=== PATIENT | female | born 1980 | race Caucasian/White ===

== ENCOUNTER 2022-09-13 10:07 | Emergency (ER) | payer BC ==
[~2022-09-13] VITALS: Ht 149.9 cm; Wt 45.4 kg
[2022-09-13 10:29] VITALS: BP_SYST 93; PULSE 124; RESP 24; TEMP 99.9; O2SAT 99
--- NOTE | 2022-09-13 10:50 | NUR ---
Patient BIB mother C/O cough & fevers since 09/09. has been seen in urgent care twice. Wa given two different antibiotics but is not feeling better. Was tested for COVID at urgent care Friday, was negative. Returned to urgent care yesterday and was given IV fluids. Fever today was stated to be 101 prior to coming to ED but took Tylenol. Also c/o swelling to bilat hands. No med hx. Sx Hx of breast augmentation. NKA. VSS.
--- NOTE | 2022-09-13 11:00 | NUR ---
DR BAUER AT BEDSIDE
--- NOTE | 2022-09-13 11:05 | NUR ---
Covid & flu swabs obtained & taken to lab.
--- NOTE | 2022-09-13 11:08 | NUR ---
PORTABLE XRAY AT THE BEDSIDE
--- NOTE | 2022-09-13 11:10 | NUR ---
Urine sample obtained and taken to lab. HCG negative.
[2022-09-13 11:24] LABS: BASOPHILS % (AUTO) 0.2 % (0.0-2.0); EOSINOPHILS % (AUTO) 0.3 % (0.0-4.0); HEMATOCRIT 37.6 % (36-48); HEMOGLOBIN 12.9 g/dL (12.0-16.0); LYMPHOCYTES # (AUTO) 1.1 K/uL (1.0-5.5); LYMPHOCYTES % (AUTO) 13.6 % (20.5-51.5); MEAN CORPUSCULAR HEMOGLOBIN 30 pg (27-31); MEAN CORPUSCULAR HGB CONC 34 % (32-36); MEAN CORPUSCULAR VOLUME 87 fL (79.0-98.0); MONOCYTES # (AUTO) 0.7 K/uL (0.0-1.0); MONOCYTES % (AUTO) 8.7 % (1.7-9.3); NEUTROPHILS # (AUTO) 6.5 K/uL (1.8-7.7); NEUTROPHILS % (AUTO) 77.2 % (40.0-70.0); PLATELET COUNT (AUTO) 227 K/uL (130-430); RED BLOOD CELL COUNT(AUTO) 4.31 MIL/uL (4.2-6.2); RED CELL DISTRIBUTION WIDTH 13.1 % (9.0-15.0); WHITE BLOOD COUNT (AUTO) 8.4 K/uL (4.8-10.8)
[2022-09-13 11:27] LABS: CALCIUM 8.4 mg/dL (8.4-11.0); CREATININE 0.65 mg/dL (0.55-1.30)
[2022-09-13] MEDS ORDERED: ALBMDI INH (11:57)
[2022-09-13] MEDS ORDERED: IBUP-1969 PO (11:57)
[2022-09-13 12:02] LABS: TOTAL BILIRUBIN 0.5 mg/dL (0.0-1.0)
--- NOTE | 2022-09-13 12:30 | NUR ---
Patient given written and verbal discharge instructions and verbalizes understanding. ER MD BAUER discussed with patient the results and treatment provided. Patient in stable condition. ID arm band removed. Rx of ALBUTEROL, IBUPROFEN given. Patient educated on pain management and to follow up with PMD. Pain Scale 0/10. Opportunity for questions provided and answered. Medication side effect fact sheet provided.
[2022-09-13 12:33] VITALS: BP_SYST 118; PULSE 117; RESP 17; TEMP 98.9; O2SAT 99
== END 2022-09-13 12:30 | disposition home or self-care (01) ==
LOC: SED 10:07
DX: J18.9 Pneumonia, unspecified organism (principal); R50.9 Fever, unspecified; R05.9 Cough, unspecified; R09.81 Nasal congestion; Z79.899 Other long term (current) drug therapy; Z20.822 Contact with and (suspected) exposure to COVID-19
CPT/HCPCS: 36415; 71045; 80053; 81025; 83605; 85025; 99284